=== PATIENT | female | born 2000 | race Caucasian/White ===

== ENCOUNTER 2023-01-12 12:49 | Emergency (ER) | payer BC ==
[~2023-01-12] VITALS: Ht 165 cm; Wt 73.0 kg
--- NOTE | 2023-01-12 13:12 | ED Upper Extremity ---
General Chief Complaint: Upper Extremity Stated Complaint: RT ARM INJ | THROWN FROM HORSE Nursing Triage Note: PT WAS THROWN FROM HER HORSE AND THEN STEPPED ON BY THE HORSE, CC OF FX RT FORERARM, PT WAS SEEN AT [facility] IN [facility] AND SENT HERE. TRYING TO GET IMAGES CLOUDED HERE TO BE SEEN. NO LOC, LANDED ON LT SIDE BUT NOT COMPLAINING OF ANY OTHER PAIN AT THIS TIME Source: patient Exam Limitations: no limitations History of Present Illness Date Seen by Provider: Jan 12, 2023 Time Seen by Provider: 13:09 Initial Comments Patient is a 22-year-old female who presents to the ED for evaluation of her right arm. Patient fractured her right arm today when she was bucked off a h orse. She states the horse landed directly on her right forearm. Was seen at [facility] clinic in [place] had x-rays which showed a fracture of her right forearm. Patient was sent to the ED for splinting. She report denies of any distal numbness and tingling but pain with movement of her fingers and wrist. She denies hitting her head or loss of conscious. She landed on her left side but denies of any left sided pain at this time. Only pain at this time is in her right arm. She denies headache, dizziness, nausea, vomiting, diarrhea, chest pain, shortness of breath, abdominal pain, middle lower back pain. She did receive Toradol at the clinic Allergies and Home Medications Allergies Coded Allergies: No Known Drug Allergies (Unverified , 01/12/23) Patient Home Medication List Home Medication List Reviewed: Yes Hydrocodone/Acetaminophen (Hydrocodone-Acetamin 5-325 mg) 5 Mg-325 Mg Tablet, 1 TAB PO Q4H PRN for PAIN-MODERATE (5-7) Prescribed by: SAMREEN CEJA on 01/12/23 2128 Review of Systems Constitutional: No chills, No diaphoresis, No malaise, No weakness EENTM: No ear pain, No blurred vision Respiratory: No cough, No dyspnea on exertion Cardiovascular: No chest pain Gastrointestinal: No abdominal pain, No diarrhea, No vomiting Genitourinary: No decreased output, No discharge Musculoskeletal: joint pain, muscle pain, muscle stiffness Skin: No change in color All Other Systems Reviewed Negative Unless Noted: Yes Physical Exam Vital Signs Vital Signs - First Documented 01/12/23 13:02 Temp 37.4 Pulse 89 Resp 20 B/P (MAP) 155/93 (113) Pulse Ox 100 O2 Delivery Room Air Capillary Refill : Less Than 3 Seconds Height, Weight, BMI Height: '" Weight: lbs. oz. kg; 26.00 BMI Method: General Appearance: WD/WN, no apparent distress HEENT: PERRL/EOMI, normal ENT inspection, TMs normal, pharynx normal Neck: non-tender, full range of motion, supple, normal inspection Cardiovascular: regular rate, rhythm, no edema, no gallop, no JVD Respiratory: chest non-tender, lungs clear, normal breath sounds, no respiratory distress, no accessory muscle use Gastrointestinal: normal bowel sounds, non tender, soft, no organomegaly Back: normal inspection, no CVA tenderness, no vertebral tenderness Shoulder: normal inspection, non-tender, no evidence of injury (right shoulder and left shoulder) Elbow/Forearm: Right (Tenderness to palpate right distal elbow, right proximal radius and ulna. Swelling noted. Radial pulse +2. Limited passive range of motion right elbow.) Wrist: Yes normal inspection, Yes non-tender, Yes no evidence of injury Hand: non-tender, normal ROM, Right Procedures/Interventions Splinting and Joint Reduction : Pre-Proc Neuro Vasc Exam: normal Post-Proc Neuro Vasc Exam: normal Progress right elbow and forearm Progress Long-arm right posterior Ortho-Glass splint was placed. Pre and post neurovascular intact. Large sling was provided Hand-Made Type: orthoglass Splint Application: Long Arm Progress/Results/Core Measures Results/Orders My Orders Orders - BERNADETTE PAIZ Outside Films For Comparison (01/12/23 ) Hydrocodone/Apap 7.5/325 Tab (Hydrocodon (01/12/23 13:26) Forearm, Right, 2 Views (01/12/23 13:28) Vital Signs/I&O 01/12/23 01/12/23 01/12/23 13:02 13:31 14:08 Temp 37.4 37.4 37.4 Pulse 89 87 Resp 20 20 B/P (MAP) 155/93 (113) 141/90 Pulse Ox 100 98 O2 Delivery Room Air Room Air Blood Pressure Mean: 113 Departure Communication (PCP) Patient presents to the ED for right arm injury. Was seen at [facility] had a positive forearm fracture. Patient Was sent to the ED for splinting. On exam she has very minimal superficial abrasions. No open lesions or lacerations suggesting open fracture. Neurovascular intact distally. No evidence compartment syndrome. Pain with flexion extension on passive range of motion of the elbow. She did fall and landed on her left side. She denies hitting her head or loss of consciousness. She states a horse stepped on her right arm. She denies of any pain to her head, cervical neck, middle lower back, chest or abdomen. Outside x-rays did show a proximal ulnar fracture. Patient was discussed with Dr. VELIZ who looked over the imaging. At this time recommend a posterior long-arm splint and sling. Has a scheduled follow-up in the morning with Dr. Rock or Dr. Veliz. Patient was given a dose of hydrocodone. Recommended a 2 view x-ray of the right forearm. X-ray did show stable appearance and position of the displaced transverse fracture involving the proximal one third of the diaphysis of the ulna.. There is no other fracture seen's. Appearance of the malalignment of the radial capitellar positioning concerning for a potential dislocation to this area. These results were discussed with orthopedic. Not able to successfully reduce due to her fracture. May require surgery. Will discharge with pain medication. Return precaution were discussed. Post splint neurovascular intact Impression Primary Impression: Forearm fracture Disposition: 01 HOME, SELF-CARE Condition: Stable Departure-Patient Inst. Decision time for Depature: 13:35 Referrals: NO,LOCAL PHYSICIAN (PCP) Primary Care Physician RASHIDA VELIZ MD Patient Instructions: Forearm and Wrist Fractures ED Add. Discharge Instructions: Keep the arm in the sling and splint. Follow-up with Dr. Dunn or Dr. Veliz tomorrow. Provided a number in discharge instructions. Take ibuprofen to help with pain and swelling. hydrocodone as needed All discharge instructions reviewed with patient and/or family. Voiced understanding. Scripts Hydrocodone/Acetaminophen (Hydrocodone-Acetamin 5-325 mg) 5 Mg-325 Mg Tablet 1 TAB PO Q4H PRN for PAIN-MODERATE (5-7), #14 TAB Prov: BERNADETTE PAIZ 01/12/23 BERNADETTE PAIZ Jan 12, 2023 13:12
[2023-01-12] MEDS ORDERED: HYDROcodone/ACETAMINOPHEN 7.5 MG/325 MG TABLET PO STA (13:26)
[2023-01-12] MEDS ORDERED: ACHD5005 PO (13:38)
--- NOTE | 2023-01-12 14:00 | Diagnostic Imaging Report ---
CLINICAL INDICATIONS: Patient was thrown from a horse, stepped on by the horse. Patient has a fractured right forearm. EXAM: X-ray of the right forearm, 2 views. COMPARISONS: Outside X-ray of the right forearm dated 01/12/2023 from [facility]. FINDINGS AND IMPRESSION: 1: There is stable appearance and position of the displaced transverse fracture involving the proximal one-third of the diaphysis of the ulna bone. There is one full shaft width of dorsal displacement of the distal fracture fragment with slight bayonet apposition. 2: There is no other fracture seen. 3: Again noted, appearance of malalignment of the radial capitellar positioning concerning for dislocation. 4: There is soft tissue swelling about the forearm and elbow. Dictated by: Dictated on workstation # [id number]
[2023-01-12 14:08] VITALS: BP 141/90
== END 2023-01-12 14:08 | disposition home or self-care (01) ==
LOC: ER 12:53
DX: S52.001A Unspecified fracture of upper end of right ulna, initial encounter for closed fracture (principal); W55.12XA Struck by horse, initial encounter
CPT/HCPCS: 29105; 73090